=== PATIENT | male | born 1945 | race Caucasian/White ===

== ENCOUNTER → 2019-08-28 07:43 | Outpatient (CLI) | payer MEDICARE, OTHER, SELFPAY ==
--- NOTE | ~2019-08-28 | MR_ITS ---
EXAMINATION: MR lumbar spine wo [facility] EXAM DATE: 08/28/2019 08:21 INDICATION: Low back pain, left hip pain. TECHNIQUE: Multi-sequential, multiplanar MR images of the lumbar spine were obtained without contrast . Sagittal T1, T2, T2 fat saturation images. Axial T2 weighted images. There is no prior study for comparison. FINDINGS: There is moderate disc disease L4-5 and L5-S1, mild to moderate at T12-L1 and L2-3, mild at L1-2 and L3-4. The conus medullaris terminates at the L1/2 level and has normal signal intensity and morphology. There is endplate degenerative signal change mostly L4-5 and L5-S1. There are no focal marrow signal abnormalities suspicious for malignancy or acute fracture. Paraspinal soft tissue is un remarkable. Level by level evaluation: T12-L1: There is a mild diffuse disc bulge. Facet arthropathy: Mild. Neural foraminal stenosis: No stenosis. Central canal stenosis: No stenosis. L1-L2: There is a mild diffuse disc bulge. Facet arthropathy: Mild. Neural foraminal stenosis: No stenosis. Central canal stenosis: No stenosis. L2-L3: There is a mild to moderate diffuse disc bulge. Facet arthropathy: Mild. Neural foraminal stenosis: Mild bilateral. Central canal stenosis: Mild. L3-L4: There is a moderate diffuse disc bulge. Facet arthropathy: Mild to moderate. Neural foraminal stenosis: Mild to moderate right, mild left. Central canal stenosis: Mild. L4-L5: There is a moderate diffuse disc bulge. Facet arthropathy: Mild to moderate. Neural foraminal stenosis: Moderate bilateral, left greater than right. Central canal stenosis: Mild to moderate. L5-S1: There is a moderate diffuse disc bulge. Facet arthropathy: Mild. Neural foraminal stenosis: Moderate to severe right, moderate left. Central canal stenosis: Mild. IMPRESSION: Overall moderate lower lumbar spondylosis. Reviewed, dictated and finalized at location A. 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
== END ==
PROVIDERS: Visit Provider Registered Nurse
DX: M25.552 Pain in left hip (principal); M47.816 Spondylosis without myelopathy or radiculopathy, lumbar region
CPT/HCPCS: 72148

== ENCOUNTER 2019-11-10 12:34 | Outpatient (CLI) | payer MEDICARE, OTHER, SELFPAY ==
--- NOTE | ~2019-11-10 | XR_ITS ---
. EXAMINATION: XR lg joint inject/asp w image DATE: 11/10/2019 13:18 INDICATION: Left hip pain TECHNIQUE: A time-out was performed to verify the patient's name, date of , and procedure to b e performed. The procedure including the risks, benefits, and alternatives was discussed with the pat ient. Risks discussed included bleeding and infection. The patient understood the risks and agreed to proceed. The skin overlying the left hip joint was prepped and draped in usual sterile fashion. An esthetic was administered with 1% lidocaine subcutaneously. A 22 G needle was advanced under fluoros copic guidance into the joint. Injection of 0.6 mL of Omnipaque 240 confirmed intra-articular positi on of the needle. Subsequently, injectate consisting of 7 mm a 5:2 mixture of 1% lidocaine:10 mg/mL Kenalog for a total dosage of 20 mg Kenalog was instilled. Washout of contrast was seen confirming in tra-articular administration. The needle was removed and the entry site was cleaned and dressed. The re were no immediate complications. Fluoroscopy exposure time was 0.1 minutes. The total number of im ages was 1. FINDINGS: Real-time fluoroscopy demonstrates the needle in the left hip joint. Patient's pain prior t o procedure:1/10. Patient's pain following the procedure: 0/10. IMPRESSION: 1. Fluoroscopic guided left hip injection of local anesthetic and steroid with decrease in the patien t's presenting pain. Reviewed, dictated and finalized at location A. IMPRESSION: 1. Fluoroscopic guided left hip injection of local anesthetic and steroid with decrease in the patient's presenting pain.
== END 2019-11-10 12:35 | disposition home or self-care (01) ==
PROVIDERS: PCP Registered Nurse; Visit Provider Orthopaedic Surgery
DX: M25.552 Pain in left hip (principal)
CPT/HCPCS: 20610; 77002; J3301; Q9966

== ENCOUNTER 2020-10-04 12:34 | Outpatient (CLI) | payer MEDICARE, OTHER, SELFPAY ==
--- NOTE | ~2020-10-04 | XR_ITS ---
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 The procedure including the risks, benefits, and alternatives was discussed with the pat ient. Risks discussed included bleeding and infection. The patient understood the risks and agreed to proceed. The skin overlying the left hip joint was prepped and draped in usual sterile fashion. An esthetic was administered with 1% lidocaine subcutaneously. A 22 G needle was advanced under fluoros copic guidance into the joint. Injection of 1 mL of Omnipaque 240 confirmed intra-articular position of the needle. Subsequently, injectate consisting of 7 mm of a 5:2 mixture of 1% lidocaine, 10 mg/m L Kenalog for a total dose of 20 mg Kenalog was instilled. Washout of contrast was seen confirming in tra-articular administration. The needle was removed and the entry site was cleaned and dressed. The re were no immediate complications. Fluoroscopy exposure time was 0.1 minutes. The total number of im ages was 2. FINDINGS: Real-time fluoroscopy demonstrates the needle in the left hip joint. Patient's pain prior t o procedure:1/10. Patient's pain following the procedure: 0/10. IMPRESSION: 1. Left hip joint injection of local anesthetic and steroid with decrease in the patient's presenting pain. Reviewed, dictated and finalized at location A. IMPRESSION: 1. Left hip joint injection of local anesthetic and steroid with decrease in th e patient's presenting pain.
== END 2020-10-04 12:35 | disposition home or self-care (01) ==
PROVIDERS: PCP Registered Nurse; Visit Provider Orthopaedic Surgery
DX: M16.12 Unilateral primary osteoarthritis, left hip (principal)
CPT/HCPCS: 20610; 77002; J3301; Q9966

== ENCOUNTER 2020-12-27 17:23 | Emergency (ER) | payer MEDICARE, OTHER, SELFPAY ==
[2020-12-27 17:30] VITALS: BP 140/57; PULSE 58; RESP 16; TEMP 36.8; O2SAT 99
--- NOTE | 2020-12-27 17:49 | ED.URI ---
HPI - URI/Sore Throat General Chief Complaint: Upper Respiratory Infection Stated Complaint: ear pain/sore throat/chest congestion Time Seen by Provider: 12/27/20 17:40 Source: patient and RN notes reviewed Mode of arrival: ambulatory Limitations: no limitations History of Present Illness HPI Narrative: Patient presents today with a 3-day history of sore throat, bilateral ear pain, chest congestion, dry cough, chills and sweats. Denies shortness of breath or known fever. Reports symptoms have been worsening since onset. Denies history of COPD or seasonal allergies. He has been taking aspirin and using NyQuil without relief. MD elicited complaint: cough, sore throat and other (Ear pain) Related Data Home Medications Medication Instructions Recorded Confirmed amlodipine 10 mg tablet 10 mg PO QAM 11/05/19 12/27/20 omeprazole 20 mg PO DAILY 12/27/20 12/27/20 Allergies Allergy/AdvReac Type Severity Reaction Status Date / Time STEROIDS Allergy Mild SHINGLES Uncoded 12/27/20 17:37 AFTER HAVING HIGH DOSE STEROIDS Review of Systems Review of Systems: Narrative: CONSTITUTIONAL: Denies body aches, fever.+ Chills and sweats EYES: Denies visual changes, redness, or discharge. ENT: Denies rhinorrhea, congestion.+ Sore throat, bilateral ear pain CARDIOVASCULAR: Denies chest pain, palpitations, or edema. RESPIRATORY: Denies dyspnea.+ Cough, chest congestion GASTROINTESTINAL: Denies abdominal pain, nausea, vomiting, or diarrhea. GENITOURINARY: Denies dysuria or hematuria. SKIN: Denies rash, itching, or wounds. MUSCULOSKELETAL: Denies back pain, joint pain, or myalgia. NEUROLOGIC: Denies headache, numbness, tingling, or weakness. PSYCH: Denies depression or anxiety. [facility] Past Medical History Medical History (Updated 12/27/20 @ 17:52 by Jaqui Aguirre, [facility], ) Cheekbone fracture (~2017) Hypertension Left hamstring injury Skin problem Surgical History Surgical History H/O shoulder surgery spur removed 2009 History of appendectomy (~1958) Family History Family History Mother Cancer Heart disease Grandparent Hypertension Cerebrovascular accident Sibling Hypertension Father Rheumatoid arthritis Social History Social History Smoking packs per day: 1.5 Smoking cigarettes per day: 30.0 Years smoked: 38 Smoking pack-years: 57.00 Smoking status: Former smoker Tobacco type: cigarettes Additional smoking assessment comments: DENIES ANY FORM OF TOBACCO USE Spiritual care concerns: No Comments At time of signature, I have reviewed and agree with nursing past medical, surgical, social and family history unless otherwise noted. Please see nursing chart for further information. There is no relevant family history pertinent to the presenting complaint Exam Narrative: Exam Narrative: GENERAL: Well-appearing, well-nourished, and in no acute distress. HEAD: Normocephalic, atraumatic. EYES: EOMI. No redness or drainage. Conjunctivae normal. ENT: Mucous membranes pink and moist. Nares congested. No rhinorrhea. Right TM is erythematous and bulging with purulent material. Throat normal. Uvula midline. NECK: Normal AROM. Supple. No lymphadenopathy. CHEST: No respiratory distress. Clear to auscultation. HEART: Regular rate and rhythm. No murmur appreciated. Normal peripheral pulses. EXTREMITIES: Normal range of motion. No edema. SKIN: Warm, dry, no rash. Capillary refill normal. Normal skin turgor. NEURO: No focal deficits. Alert and oriented x3. Gait steady. PSYCH: Normal affect. No signs of depression or anxiety. Course Vital Signs Vital signs: Vital Signs Temperature 98.2 F 12/27/20 17:30 Pulse Rate 58 L 12/27/20 17:30 Respiratory Rate 16 12/27/20 17:30 Blood Pressure 140/57 L 12/27/20 17:30 P
== END 2020-12-27 17:55 | disposition home or self-care (01) ==
PROVIDERS: Emergency Provider Nurse Practitioner; PCP Registered Nurse
DX: H66.91 Otitis media, unspecified, right ear (principal); J06.9 Acute upper respiratory infection, unspecified; Z87.891 Personal history of nicotine dependence; I10 Essential (primary) hypertension
CPT/HCPCS: 99213; G0463

== ENCOUNTER 2021-02-14 12:44 | Outpatient (CLI) | payer MEDICARE, OTHER, SELFPAY ==
--- NOTE | ~2021-02-14 | XR_ITS ---
EXAMINATION: XR lg joint inject/asp w image DATE: 02/14/2021 13:28 INDICATION: Unilateral primary osteoarthritis, left hip. TECHNIQUE: A time-out was performed to verify the patient's name, date of , and procedure to b e performed. The procedure including the risks, benefits, and alternatives was discussed with the pat ient. Risks discussed included bleeding and infection. The patient understood the risks and agreed to proceed. The skin overlying the left joint was prepped and draped in usual sterile fashion. Anesth etic was administered with 1% lidocaine subcutaneously. A 22 G needle was advanced under fluoroscopi c guidance into the joint. Injection of 1 mL of Omnipaque 240 confirmed intra-articular position of the needle. Subsequently, injectate consisting of 5 mm 1% lidocaine and 2 mL 10 mg/mL Depo-Medrol wa s instilled. The needle was removed and the entry site was cleaned and dressed. There were no immed iate complications. Fluoroscopy exposure time was 0.1 minutes. The total number of images was 2. FINDINGS: Real-time fluoroscopy demonstrates the needle in the left hip joint. Patient's pain prior t o procedure:4/10. Patient's pain following the procedure: 0/10. IMPRESSION: 1. Fluoroscopy guided left hip joint injection of local anesthetic and steroid with decrease in the p atient's presenting pain. Reviewed, dictated and finalized at location A. IMPRESSION: 1. Fluoroscopy guided left hip joint injection of local anesthetic and steroid with decrease in the patient's presenting pain.
== END 2021-02-14 12:45 | disposition home or self-care (01) ==
LOC: ANHIMG 12:47
PROVIDERS: PCP Registered Nurse; Visit Provider Orthopaedic Surgery
DX: M16.12 Unilateral primary osteoarthritis, left hip (principal)
CPT/HCPCS: 20610; 77002; J3301; Q9966

== ENCOUNTER 2021-05-03 07:41 | Outpatient (CLI) | payer MEDICARE, OTHER, SELFPAY ==
[2021-05-03 09:03] LABS: Hemoglobin A1C 5.9 % (<5.7)
[2021-05-03 09:07] LABS: Urine Cotinine NEGATIVE
== END 2021-05-03 07:42 | disposition home or self-care (01) ==
LOC: ANHSURGERY 07:45
PROVIDERS: PCP Registered Nurse; Visit Provider Orthopaedic Surgery
DX: Z01.812 Encounter for preprocedural laboratory examination (principal); M16.12 Unilateral primary osteoarthritis, left hip
CPT/HCPCS: 80307; 83036; 86850; 86900; 86901; 87081

== ENCOUNTER 2021-05-03 08:24 | Outpatient (CLI) | payer MEDICARE, OTHER, SELFPAY ==
[2021-05-03 08:52] LABS: Basophils Absolute Auto 0.1 K/mm3 (0.0-0.1); Basophils Percent Auto 1.4 % (0.2-1.2); Eosinophils Absolute Auto 0.1 K/mm3 (0-0.3); Eosinophils Percent Auto 2.4 % (0-4.4); Hematocrit 47.3 % (42.0-52.0); Hemoglobin 15.5 g/dL (14.0-18.0); Immature Granulocyte Absolute 0.02 K/mm3 (0.00-0.031); Immature Granulocyte Percent A 0.3 % (0-0.5); Lymphocytes Absolute Auto 1.11 K/mm3 (0.9-3.2); Lymphocytes Percent Auto 19.2 % (18.3-44.2); Mean Corpuscular HGB Conc 32.8 g/dl (32-36); Mean Corpuscular Hemoglobin 30.6 pg (26-34); Mean Corpuscular Volume 93.5 fl (80-100); Mean Platelet Volume 9.3 fl (7.4-10.4); Monocytes Absolute Auto 0.6 K/mm3 (0.1-0.6); Monocytes Percent Auto 9.8 % (2.6-8.5); Neutrophils Absolute Auto 3.9 K/mm3 (1.3-6.7); Neutrophils Percent Auto 66.9 % (45.5-73.1); Platelet Count Result 278 k/mm3 (150-375); Red Blood Count 5.06 M/mm3 (4.6-6.20); Red Cell Distribution Width 13.2 % (11.5-14.5); White Blood Count 5.8 K/mm3 (4.5-10.0)
[2021-05-03 09:07] LABS: Alanine Aminotransferase 20 U/L (4-50); Albumin Level 4.4 g/dL (3.5-5.1); Alkaline Phosphatase 80 U/L (38-126); Anion Gap 3 mmol/L (8-16); Aspartate Amino Transferase 29 U/L (17-59); Bilirubin,Total 0.5 mg/dL (0.2-1.3); Blood Urea Nitrogen 19 mg/dL (9-20); Calcium 9.5 mg/dL (8.4-10.2); Carbon Dioxide 34 mmol/L (22-30); Chloride 102 mmol/L (98-107); Estimated Glomerular Filt Rate 54; Glucose 112 mg/dL (65-110); Potassium 5.3 mmol/L (3.4-5.0); Sodium 139 mmol/L (137-145)
[2021-05-03 11:31] LABS: Free T4 Free Thyroxine Reflex 0.92 ng/dL (0.78-2.19)
[2021-05-03 14:07] LABS: Total Triiodothyronine (T3) 1.56 NG/ML (0.97-1.69)
== END 2021-05-03 08:25 | disposition home or self-care (01) ==
PROVIDERS: PCP Registered Nurse; Visit Provider Registered Nurse
DX: Z01.818 Encounter for other preprocedural examination (principal); E03.8 Other specified hypothyroidism; I10 Essential (primary) hypertension; Z41.9 Encounter for procedure for purposes other than remedying health state, unspecified
CPT/HCPCS: 36415; 80053; 80307; 83036; 84439; 84443; 84480; 85025; 86850; 86900; 86901; 87081

== ENCOUNTER 2021-05-16 00:46 | Day surgery (SDC) | payer MEDICARE, OTHER, SELFPAY ==
[2021-05-03 08:06] VITALS: BMI 31.0
[2021-05-16] VITALS (17 sets, daily range): BP systolic 123–160; BP diastolic 55–73; PULSE 66–87; RESP 15–18; TEMP 36–36.4; O2SAT 94–100
--- NOTE | ~2021-05-16 | XR_ITS ---
EXAMINATION: XR surgery orthopedic DATE: 05/16/2021 10:15 INDICATION: Left hip arthroplasty TECHNIQUE: Single fluoroscopic view of the left hip. 14 seconds of fluoroscopy. FINDINGS: There is a left total hip arthroplasty, not well visualized due to technique. Limited evalu ation of the soft tissues. IMPRESSION: 1. Recent left hip arthroplasty. Limited study. Reviewed, dictated and finalized at location A. 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
--- NOTE | ~2021-05-16 | XR_ITS ---
EXAMINATION: XR hip LT min 2V DATE: 05/16/2021 11:11 INDICATION: Left hip arthroplasty TECHNIQUE: 2 views left hip FINDINGS: There is a left total hip arthroplasty in expected position. Subcutaneous gas with soft ti ssue swelling are consistent with recent surgery. IMPRESSION: 1. Recent left total hip arthroplasty. Reviewed, dictated and finalized at location A. 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
[2021-05-16] MEDS: ACETAMINOPHEN 500 MG TABLET 1000 MG PO (06:24)
[2021-05-16] MEDS: LACTATED RINGERS 1,000 ML 30 ML IV CONT ×2 (06:30→10:55)
[2021-05-16] MEDS: TRANEXAMIC ACID 1,000MG/ISO100 1,000 MG/100 ML BAG 200 MG IVPB (07:10)
--- NOTE | 2021-05-16 07:10 | WPDANESEPPF ---
Anes - Initial Pre Proc Eval Procedure: Operation Date: 05/16/21 07:30 Proposed Procedures p Left Total Hip Arthroplasty Anterior Approach - Kwame Leo MD Date/Time: 05/16/21 07:10 Surgeon: Kwame Leo MD Pre Op Diagnosis: OA left hip Patient Data Age: 75 Gender: M Height: 1.78 m Weight: 86.5 kg Last Vital Signs Temp 36.1 C L 05/16/21 06:03 Pulse 66 05/16/21 06:03 Resp 16 05/16/21 06:03 BP 160/73 H 05/16/21 06:03 Pulse Ox 99 05/16/21 06:03 Allergies Allergy/AdvReac Type Severity Reaction Status Date / Time STEROIDS Allergy Mild SHINGLES Uncoded 05/16/21 06:16 AFTER HAVING HIGH DOSE STEROIDS Home Medications Medication Instructions Recorded Confirmed Type amlodipine 10 mg tablet 10 mg PO QAM 11/05/19 05/16/21 History omeprazole 20 mg PO QAM 12/27/20 05/16/21 History acetaminophen [Tylenol Arthritis 1,300 mg PO Q8H PRN 05/03/21 05/16/21 History Pain] rivaroxaban 10 mg tablet 10 mg PO DAILY #14 tablet 05/12/21 05/16/21 Rx Patient hx anesthesia problems: none Family hx anesthesia problems: none Results Review: All pre-operative results and documents have been reviewed as part of the pre-operative evaluation. [facility] Past Medical History Medical History Cheekbone fracture (~2017) Hypertension Left hamstring injury Skin problem Surgical History Surgical History H/O shoulder surgery spur removed 2009 History of appendectomy (~1957) Family History Family History Mother Cancer Heart disease Grandparent Hypertension Cerebrovascular accident Sibling Hypertension Father Rheumatoid arthritis Social History Social History Smoking packs per day: 1.5 Smoking cigarettes per day: 30.0 Years smoked: 38 Smoking pack-years: 57.00 Smoking status: Former smoker Tobacco type: cigarettes Second hand tobacco smoke exposure: No Additional smoking assessment comments: STATES QUIT 2007 - DENIES ALL FORMS OF TOBACCO USE Alcohol intake: never Substance use: never Substance use type: does not use Living arrangements: with friend(s) Additional living arrangements comments: LIVES WITH SIGNIFICANT OTHER Spiritual care concerns: No Anes - Eval Final PreProcedure Day of Procedure 05/16/21 07:10 Patient weight: overweight Heart: regular rate and rhythm Lungs: clear to auscultation and normal air movement Airway: Mallampati scale class II Neurological: alert and oriented Last oral intake: >/= 8 hours ASA classification: II Emergent: no Anesthetic plan: proceed Anesthesia type and monitoring: general ETT Results Review: All pre-operative results and documents have been reviewed as part of the pre-operative evaluation. Informed Consent: The patient's anesthetic plan and its attendant risks and benefits were discussed with the patient/family/POA. Questions were solicited and answers provided to the satisfaction of the patient/family/POA.
--- NOTE | 2021-05-16 07:10 | WPDHPUPDATE1 ---
History and Physical Update Update Date/Time: 05/16/21 07:10 History and Physical has been reviewed, including an updated exam of the patient. There are NO changes in the patient's condition. Risks, benefits, and alternatives have been discussed and questions answered. Patient agrees to proceed with procedure.
[2021-05-16] MEDS: ceFAZolin 2 GM/D5W 50 ML 2 GM/50 ML BAG IVPB ×2 (07:42→15:19)
[2021-05-16] MEDS: ceFAZolin SODIUM 1 GM VIAL IV PUSH (10:17)
[2021-05-16] MEDS: fentaNYL CITRATE INJ (*CRX) 100 MCG/2 ML VIAL 25 MCG IV PUSH ×8 (11:05→12:06)
--- NOTE | 2021-05-16 11:07 | P.OP_ITS ---
Procedure Note - Detailed Date of Procedure 05/16/21 Pre-op Diagnosis OA left hip Post-op Diagnosis same Procedure Performed Left total hip replacement through anterior approach with fluoroscopic assistance Surgeon Kwame Leo MD Senior Accounting Specialist Michelle Montiel Anesthesia general Description of Procedure The patient was identified, proper side identified, and then taken to the operating room. After induction of general anesthesia with intubation, he was then transferred over to the [place] table positioning supine in the usual manner for an anterior hip procedure. Positioning was assessed fluoroscopically after which the left hip and thigh was prepped and draped in the usual sterile fashion. 10 cc of the arthroplasty solution was injected into the subcutaneous tissue over the TFL muscle belly. Longitudinal incision was made over the muscle belly. Subcutaneous tissue was sharply dissected down to the TFL fascia which was incised in line with the fibers the TFL. The TFL was retracted laterally and the rectus femoris medially. The rectus fascia was divided. The branches of the anterior femoral circumflex artery were identified and cauterized allowing for access to the hip capsule. Pericapsular fatty tissue was removed. The capsule was divided in an inverted T-fashion. The neck cut was made one fingerbreadth above the level of the lesser trochanter. Head fragment was removed and the acetabulum cleared of debris. Acetabulum was sequentially reamed under fluoroscopic visualization up to 57 mm. A 58 G7 acetabular shell was inserted under fluoroscopic visualization in approximately 40? of abduction and 15? of anteversion following the patient's anatomy. It was further secured with a single screw and then the liner for the 36 head was placed. The femur was then delivered up into the wound with the appropriate releases. The proximal femur was prepared for the size 13 microplasty high offset stem and a trial reduction was undertaken. Overall alignment was assessed fluoroscopically in the AP and lateral views noting it to be satisfactory. Trial components were removed. The wound was irrigated with pulsatile lavage. The real size 13 microplasty micro plasty high offset stem was then seated. This construct with a 36+ 0 head gave excellent quaker of leg lengths and stability so the real 36+ 0 was attached to the neck of the femoral component after it had been cleaned and dried. Hip was again reduced and stability assessed, and it was noted to be stable. After final lavage of the wound, the periarticular tissues were injected with an additional 50 cc of the arthroplasty solution. 1 g of tranexamic acid was left in the wound. The capsule was reapproximated with #2 Vicryl suture, the TFL fascia with 0 looped PDS suture, the subcu with two of strata fix in the deeper layers and two of strata fix subcuticular stitch. Tissue adhesive was used for the skin. Sterile dressing was applied. He tolerated the procedure well. He was transferred back to a bed and taken to recovery area in stable condition. There were no known intraoperative complications. Estimated blood loss was 500 cc. 250 cubic centimeters received back via Cell Saver. He received perioperative antibiotics. Estimated Blood Loss -500.0 (250 cubic centimeters cell Saver return) Drains No Packing No Pathology none sent Complications No immediate complications Condition stable Disposition PACU
[2021-05-16 12:15] LABS: Hematocrit 43.1 % (42.0-52.0)
[2021-05-16] MEDS: ACETAMINOPHEN 325 MG TABLET 650 MG PO ×2 (13:15→18:01)
[2021-05-16] MEDS: oxyCODONE HCL (*CRX) 5 MG TAB IR PO (13:17)
[2021-05-16] MEDS: ONDANSETRON INJ 4 MG/2 ML VIAL IV PUSH ×2 (13:58→18:01)
[2021-05-16] MEDS: DOCUSATE SODIUM 100 MG CAPSULE PO (16:26)
[2021-05-16] MEDS: traMADol HCL (*CRX) 50 MG TABLET PO ×2 (16:30→22:02)
[2021-05-16] MEDS: SODIUM CHLORIDE 0.9% IV 1,000 ML 100 ML IV CONT (17:33)
[2021-05-17] MEDS: ceFAZolin 2 GM/D5W 50 ML 2 GM/50 ML BAG IVPB ×2 (00:17→07:59)
[2021-05-17] MEDS: traMADol HCL (*CRX) 50 MG TABLET PO ×3 (00:18→08:02)
[2021-05-17] MEDS: ACETAMINOPHEN 325 MG TABLET 650 MG PO ×2 (00:18→06:05)
[2021-05-17 04:12] VITALS: BP 132/62; PULSE 76; RESP 16; TEMP 36.1; O2SAT 94
[2021-05-17 05:57] LABS: Basophils Percent Auto 0.4 % (0.2-1.2); Eosinophils Percent Auto 0.2 % (0-4.4); Hematocrit 39.8 % (42.0-52.0); Immature Granulocyte Absolute 0.02 K/mm3 (0.00-0.031); Immature Granulocyte Percent A 0.2 % (0-0.5); Lymphocytes Absolute Auto 0.86 K/mm3 (0.9-3.2); Lymphocytes Percent Auto 9.4 % (18.3-44.2); Mean Corpuscular HGB Conc 32.7 g/dl (32-36); Mean Corpuscular Hemoglobin 30.2 pg (26-34); Mean Corpuscular Volume 92.3 fl (80-100); Mean Platelet Volume 8.7 fl (7.4-10.4); Monocytes Absolute Auto 0.8 K/mm3 (0.1-0.6); Monocytes Percent Auto 9.1 % (2.6-8.5); Neutrophils Absolute Auto 7.4 K/mm3 (1.3-6.7); Neutrophils Percent Auto 80.7 % (45.5-73.1); Platelet Count Result 230 k/mm3 (150-375); Red Blood Count 4.31 M/mm3 (4.6-6.20); Red Cell Distribution Width 13.4 % (11.5-14.5); White Blood Count 9.1 K/mm3 (4.5-10.0)
[2021-05-17 06:21] LABS: Anion Gap 9 mmol/L (8-16); Blood Urea Nitrogen 18 mg/dL (9-20); Calcium 8.1 mg/dL (8.4-10.2); Carbon Dioxide 27 mmol/L (22-30); Chloride 102 mmol/L (98-107); Estimated CRCL calculation 55 ml/min; Estimated Glomerular Filt Rate > 60; Glucose 119 mg/dL (65-110); Potassium 4.2 mmol/L (3.4-5.0); Sodium 138 mmol/L (137-145)
--- NOTE | 2021-05-17 07:20 | PM.DS ---
DS: Admitting Diagnosis Discharge Date 05/17/2021 Admitting Diagnosis left hip osteoarthritis DS: Discharge Diagnosis Discharge Diagnosis (1) History of total left hip replacement: Code(s): Z96.642 - Presence of left artificial hip joint Status: Acute Assessment and Plan: 75-year-old male postop day 1 of left hip replacement. He is experiencing pain stiffness in left hip this morning which is expected. Patient does not want to take any narcotic medications but it was explained to her that the local anesthetic will be wearing off today and it is likely that his pain will increase. The patient was okay with starting on tramadol for this reason. He will be seen by therapy today and then be discharged home. He will follow up with our office in 2 weeks for wound check. Patient was informed of no driving or operating motor vehicles while taking narcotic medication. DS: Summary Hospital Course Hospital Course: 75-year-old male was admitted for observation following left hip total replacement. He is experiencing pain and stiffness in the left hip but this is expected after his procedure yesterday. He was hesitant to take a narcotic medication due to nausea in the past. He was told that he could expect more pain today after his local anesthetic wears off. He was given tramadol to take at home for pain and he was okay with this. He will be seen by therapy today prior to discharge and he will follow up in our office in 2 weeks for wound check. Time Spent with Patient Time attestation: Total time spent providing and/or coordinating discharge services: Exam Const: General: no acute distress, well developed, alert and awake HENMT: Head: normal to inspection Ears: hearing grossly normal bilaterally Mouth: Yes dry mucous membranes Eyes: General: appearance normal, both eyes and all related structures Neck: Neck: no JVD Resp: Effort & Inspection: normal respiratory effort GI: Inspection: normal to inspection GI Palp: Yes Soft to palpation Neuro: Motor exam (neuro): Normal motor muscle tone present throughout Sensory Exam: normal sensation Extrem: Other: Exam of the left hip shows a clean and dry dressing. He does have stiffness with left hip motion however this is expected after surgical procedure yesterday. He is able to fully extend the knee, plantar and dorsiflex the foot, and wiggle his toes without issue. Neurovascular status intact. Calves negative. Psych: Mental Status: mental status grossly normal DS: Data Data Completed and Pending Labs on day of discharge: Labs from last 24 hours 05/17/21 05/17/21 05/16/21 05:48 05:48 11:56 WBC 9.1 RBC 4.31 L Hgb 13.0 L 14.0 Hct 39.8 L 43.1 MCV 92.3 MCH 30.2 MCHC 32.7 RDW 13.4 Plt Count 230 MPV 8.7 Immature Gran % (Auto) 0.2 Neut % (Auto) 80.7 H Lymph % (Auto) 9.4 L [place] % (Auto) 9.1 H Eos % (Auto) 0.2 Baso % (Auto) 0.4 Lymph # (Auto) 0.86 L [place] # (Auto) 0.8 H Eos # (Auto) 0.0 Baso # (Auto) 0.0 Abs Immat Gran (auto) 0.02 Absolute Neuts (auto) 7.4 H Absolute Nucleated RBC 0.0 Nucleated RBC % 0.0 Sodium 138 Potassium 4.2 Chloride 102 Carbon Dioxide 27 Anion Gap 9 BUN 18 Creatinine 1.10 Estim Creat Clear Calc 55 Estimated GFR > 60 Glucose 119 H Calcium 8.1 L Discharge Plan Discharge Patient Disposition: Home, Self-Care Discharge Instructions: 3 times daily for 20 minutes each time, reclining in bed with ice packs over the incision and a pillow underneath the calf of the affected leg, not under the knee. Your wound is glued so it is okay to get into the shower and get the wound wet in two days. Be sure to read through all the information that came from a my office and the hospital. Most of the answers you will need can be found that material. Call the office with any questions that you cannot find answers to, or concern
[2021-05-17] MEDS: PANTOPRAZOLE 40 MG TABLET PO (07:59)
[2021-05-17] MEDS: RIVAROXABAN 10 MG TABLET PO (07:59)
[2021-05-17] MEDS: DOCUSATE SODIUM 100 MG CAPSULE PO (07:59)
[2021-05-17] MEDS: amLODIPine BESYLATE 5 MG TABLET 10 MG PO (07:59)
[2021-05-17] MEDS: CELECOXIB 200 MG CAPSULE PO (07:59)
--- NOTE | 2021-05-17 09:01 | P.PNAN_ITS ---
Anes - Prog Note Post-Op Date/Time: 05/17/21 09:01 Cardiovascular status: normal Respiratory status: normal Airway patency: baseline Mental status: baseline Post-Op hydration status: normal Vital Signs: Last Vital Signs Temp 36.1 C L 05/17/21 04:12 Pulse 76 05/17/21 04:12 Resp 16 05/17/21 04:12 BP 132/62 05/17/21 04:12 Pulse Ox 94 05/17/21 04:12 Pain Score (VAS): 0 I/O: Intake & Output 05/16/21 05/17/21 05/17/21 23:59 07:59 15:59 Intake Total 290 1450 Output Total 100 150 Balance 190 1300 Laboratory Tests 05/17/21 05:48 05/17/21 05:48 05/16/21 05/17/21 05/17/21 11:56 05:48 05:48 WBC 9.1 RBC 4.31 L Hgb 14.0 13.0 L Hct 43.1 39.8 L MCV 92.3 MCH 30.2 MCHC 32.7 RDW 13.4 Plt Count 230 MPV 8.7 Immature Gran % (Auto) 0.2 Neut % (Auto) 80.7 H Lymph % (Auto) 9.4 L [place] % (Auto) 9.1 H Eos % (Auto) 0.2 Baso % (Auto) 0.4 Lymph # (Auto) 0.86 L [place] # (Auto) 0.8 H Eos # (Auto) 0.0 Baso # (Auto) 0.0 Abs Immat Gran (auto) 0.02 Absolute Neuts (auto) 7.4 H Absolute Nucleated RBC 0.0 Nucleated RBC % 0.0 Sodium 138 Potassium 4.2 Chloride 102 Carbon Dioxide 27 Anion Gap 9 BUN 18 Creatinine 1.10 Estim Creat Clear Calc 55 Estimated GFR > 60 Glucose 119 H Calcium 8.1 L Post-procedural complaints: none Patient Feedback: Patient satisfied with anesthetic care.
== END 2021-05-17 10:45 | disposition home or self-care (01) ==
LOC: ANHSURGERY 11:03 → ANH2MED 12:42
PROVIDERS: PCP Registered Nurse; Visit Provider Orthopaedic Surgery
PROC: (CPT 27130; principal; 2021-05-16 07:30)
DX: M16.12 Unilateral primary osteoarthritis, left hip (principal); I10 Essential (primary) hypertension; Z79.01 Long term (current) use of anticoagulants; Z87.891 Personal history of nicotine dependence
CPT/HCPCS: 27130; 36415; 73502; 80048; 85014; 85018; 85025; 97116; 97162; 97165; 97530; 97535; A9270; C1713; C1776; J0171; J0330; J0690; J2270; J2405; J2704; J2795; J3010; J7030; J7120

== ENCOUNTER 2022-01-04 12:52 | Emergency (ER) | payer MEDICARE, OTHER, SELFPAY ==
--- NOTE | 2022-01-04 12:55 | ED.URI ---
HPI - URI/Sore Throat General Chief Complaint: Upper Respiratory Infection Stated Complaint: Congestion/throat pain Time Seen by Provider: 01/04/22 13:00 Source: patient and RN notes reviewed Mode of arrival: ambulatory Limitations: no limitations History of Present Illness HPI Narrative: 26-year-old male presents with concern for 3-day history of nasal congestion, sore throat, left ear pain. He reports cough with clear mucus. He reports in the first 2 days of symptoms he had a fever. He denies fever today. Reports he has been taking NyQuil that helps his symptoms. He denies shortness of breath, body aches, chills, sweats. MD elicited complaint: sore throat and nasal congestion Related Data Home Medications Medication Instructions Recorded Confirmed amlodipine 10 mg tablet 10 mg PO QAM 11/05/19 11/23/21 omeprazole 20 mg capsule,delayed 20 mg PO QAM 12/27/20 11/23/21 release Allergies Allergy/AdvReac Type Severity Reaction Status Date / Time STEROIDS Allergy Mild SHINGLES Uncoded 09/21/21 07:57 AFTER HAVING HIGH DOSE STEROIDS Review of Systems Review of Systems: CONSTITUTIONAL: Denies malaise, chills, sweats. Reports history of fever. EYES: Denies visual changes, redness, or discharge. ENT: Reports rhinorrhea, congestion, otalgia and sore throat. CARDIOVASCULAR: Denies chest pain, palpitations, or edema. RESPIRATORY: Reports cough. Denies dyspnea. GASTROINTESTINAL: Denies abdominal pain, nausea, vomiting, diarrhea SKIN: Denies rash or itching. MUSCULOSKELETAL: Denies myalgia. NEUROLOGIC: Denies headache. All systems reviewed & are unremarkable except as noted in HPI and below PMFSH Past Medical History Medical History Cheekbone fracture (~2017) Hypertension Left hamstring injury Skin problem Surgical History Surgical History H/O shoulder surgery spur removed 2008 History of appendectomy (~1957) History of total left hip replacement Anterior approach May 16, 2021 Family History Family History Mother Cancer Heart disease Grandparent Hypertension Cerebrovascular accident Sibling Hypertension Father Rheumatoid arthritis Social History Social History Smoking packs per day: 1.5 Smoking cigarettes per day: 30.0 Years smoked: 38 Smoking pack-years: 57.00 Smoking status: Former smoker Tobacco type: cigarettes Second hand tobacco smoke exposure: No Additional smoking assessment comments: STATES QUIT 2007 - DENIES ALL FORMS OF TOBACCO USE Alcohol intake: former Substance use: never Substance use type: does not use Additional living arrangements comments: LIVES WITH SIGNIFICANT OTHER Spiritual care concerns: No Comments At time of signature, agree with nursing past medical, surgical, social and family history. There is no relevant family history pertinent to the presenting complaint Exam Narrative: GENERAL: Well-appearing, well-nourished, and in no acute distress. HEAD: Normocephalic EYES: PERRLA, conjunctivae clear ENT: Nares clear, turbinates edematous and erythematous, clear discharge. Mucous membranes moist. TM pearly valente with dull light reflex bilaterally; no tragal tenderness. Oropharynx not erythematous without lesions. Tonsils not enlarged and without exudate, no drooling, no hoarseness, no trismus, uvula midline. NECK: Supple. No lymphadenopathy CHEST: Clear to auscultation, breath sounds equal. No wheezing, rhonchi, rales, or stridor. No respiratory distress, speaks in full sentences. HEART: Regular rate and rhythm. No murmur heard. SKIN: Warm, dry, no rash. NEURO: Alert and oriented x3. PSYCH: Normal mood and affect Course Course Emergency Course: Patient is aware of diagnosis, understands and agrees to treatmen
[2022-01-04 12:59] VITALS: BP 158/65; PULSE 68; RESP 16; TEMP 36.9; O2SAT 99
== END 2022-01-04 13:28 | disposition home or self-care (01) ==
PROVIDERS: Emergency Provider Nurse Practitioner; PCP Registered Nurse
DX: U07.1 COVID-19 (principal); Z87.891 Personal history of nicotine dependence; I10 Essential (primary) hypertension; Z96.642 Presence of left artificial hip joint
CPT/HCPCS: 87426; 99213; C9803; G0463